=== PATIENT | female | born 1975 ===

== ENCOUNTER 2017-12-26 12:56 | Emergency (ER) | payer OTHER ==
[2017-12-26 13:22] VITALS: BP 131/78
--- NOTE | 2017-12-26 14:37 | UC ---
Skin Complaint HPI - HPI Summary HPI Summary: 2 WEEKS OF PAINFUL, RED AREA FRONTAL SCALP. PT REPORTS SHE CAN FEELS SOMETHING MOVING IN THERE AND THAT SHE SAW WORMS COMING OUT. WENT TO [place] 1 WEEK AGO AND PER HER REPORT SHE WAS DX WITH A PICKING D/O. NO TX GIVEN. PT PRESENTS WITH WORSENING REDNESS AND PAIN. HAS BEEN USING DRAWING SALVE WITH NO EFFECT. NO FEVER. NO RECENT TRAVEL. - History of Current Complaint Chief Complaint: UCSkin Time Seen by Provider: 12/26/17 13:47 Stated Complaint: SKIN COMPLAINT Hx Obtained From: Patient Onset/Duration: Gradual Onset, Lasting Weeks, Still Present Timing: Constant Onset Severity: Moderate Current Severity: Severe Pain Intensity: 10 Pain Scale Used: 0-10 Numeric Location: Discrete - FRONTAL SCALP Character: Swelling, Pain, Redness Aggravating Factor(s): Touch Alleviating Factor(s): Nothing - Allergy/Home Medications Allergies/Adverse Reactions: Allergies Allergy/AdvReac Type Severity Reaction Status Date / Time Naproxen Allergy Unknown Vomiting Verified 12/26/17 13:10 Prochlorperazine Allergy Unknown Anxiety Verified 12/26/17 13:09 [From Compazine] Home Medications: Home Medications Aspirin Low Dose CHEW TAB* [Aspirin Low Dose TAB*] 81 mg PO DAILY 12/26/17 [ History Confirmed 12/26/17] levETIRAcetam TAB* [Keppra TAB*] 1,000 mg PO BID 12/26/17 [History Confirmed ] Review of Systems Constitutional: Negative Skin: Other - PAINFUL AREA OF ERYTHEMA SCALP Respiratory: Negative Cardiovascular: Negative Gastrointestinal: Negative Psychological: Anxious All Other Systems Reviewed And Are Negative: Yes PMH/Surg Hx/FS Hx/Imm Hx - Additional Past Medical History Additional PMH: PROTEIN C DEFICIENCY Neurological History: Seizures - Surgical History Surgical History: Yes Surgery Procedure, Year, and Place: HYSTERECTOMY. 3 C SECTION. OVARIAN CYST RUBTURED. KIDNEY STENT. APPENDECTOMY - Family History Known Family History: Positive: Hypertension - Social History Alcohol Use: None Substance Use Type: None Smoking Status (MU): Never Smoked Tobacco - Immunization History Most Recent Tetanus Shot: TWO YEARS AGO Physical Exam Triage Information Reviewed: Yes Appearance: Pain Distress - MODERATE, Other: - PT TREMULOUS AND MILDLY AGITATED Vital Signs: Initial Vital Signs Temp 97.8 F 12/26/17 13:11 Pulse 116 12/26/17 13:11 Resp 20 12/26/17 13:11 BP 131/78 12/26/17 13:11 Pulse Ox 97 12/26/17 13:11 Vital Signs Reviewed: Yes Eyes: Positive: Conjunctiva Clear ENT: Positive: Hearing grossly normal Neck: Positive: Supple Respiratory: Positive: No respiratory distress, No accessory muscle use Cardiovascular: Positive: Pulses Normal Abdomen Description: Positive: Soft Musculoskeletal: Positive: No Edema Neurological: Positive: Alert Psychological: Positive: Age Appropriate Behavior Skin: Positive: Other - 2CM X 6CM SWOLLEN AREA OF ERYTHEMA AND TENDERNESS FRONTAL CENTRAL SCALP WITH DRAWING SALVE CAKED ON AND SOME CRUST. CENTRAL AREA OOZING. Course/Dx - Diagnoses Provider Diagnoses: SCALP CELLULITIS/IMPETIGO Discharge - Discharge Plan Condition: Stable Disposition: HOME Prescriptions: Cephalexin CAP* [Keflex 500 CAP*] 1,000 mg PO BID #40 cap Mupirocin 2% OINT* [Bactroban 2 % Oint*] 1 applic TOPICAL BID #1 tube Sulfamethox/Trimethoprim DS* [Bactrim DS 800/160 TAB*] 1 tab PO BID #20 tab Patient Education Materials: Impetigo (ED), Cellulitis (ED) Referrals: Princess Scanlon MD [Primary Care Provider] - (KEEP YOUR APPT 01/06/18) Additional Instructions: TAKE BOTH THE ANTIBIOTICS AND USE THE BACTROBAN OINTMENT PRESCRIBED. STOP USING THE DRAWING SALVE. APPLY HOT COMPRESSES 4 TIMES DAILY. CLEANSE WITH GENTLE SOAP/SHAMPOO DAILY. FOLLOW-UP WITH DERM IF NOT IMPROVING DERMATOLOGY IN [place] Dr. Rajwinder Arauz Address: Replaced by [facility] [place] [address] DR. AUSTIN PINTO [facility] [address] [place] [address] [address] JUSTYN CRAWFORD [facility], [facility] [address]; [address] [place] [address] [address] [place] [address] Etelvina Juárez DERMATOLOGY IN [place] DR. JONATHAN LOPEZ [phone]
== END 2017-12-26 14:27 | disposition home or self-care (01) ==
LOC: UCCORT 12:56
DX: L03.811 Cellulitis of head [any part, except face] (principal); L01.00 Impetigo, unspecified; Z79.82 Long term (current) use of aspirin
CPT/HCPCS: 99202; G0463